=== PATIENT | male | born 1980 | race Two or more races ===

== ENCOUNTER → 2016-10-07 | Outpatient (CLI) | payer BC ==
[~2016-10-07] MED LIST: HYDR-906 PO; IBUP800T25 PO
== END | disposition home or self-care (01) ==
LOC: HKI 08:51
PROVIDERS: ATTEND Orthopaedic Surgery
DX: S83.222D Peripheral tear of medial meniscus, current injury, left knee, subsequent encounter (principal); S83.512D Sprain of anterior cruciate ligament of left knee, subsequent encounter; M17.12 Unilateral primary osteoarthritis, left knee; M25.562 Pain in left knee
CPT/HCPCS: G0463

== ENCOUNTER → 2016-11-02 | Outpatient (CLI) | payer BC | END | disposition home or self-care (01) | LOC: HKI 09:26 | PROVIDERS: ATTEND Orthopaedic Surgery | DX: S83.222D Peripheral tear of medial meniscus, current injury, left knee, subsequent encounter (principal); S83.512D Sprain of anterior cruciate ligament of left knee, subsequent encounter; M17.12 Unilateral primary osteoarthritis, left knee; M25.562 Pain in left knee | CPT/HCPCS: G0463 ==

== ENCOUNTER → 2016-11-08 | Outpatient (CLI) | payer BC ==
[2016-11-08 16:31] LABS: BASOPHILS % 0.6 % (0.0-2.0); EOSINOPHILS # 0.1 10^3/ul (0.0-0.5); EOSINOPHILS % 1.7 % (0.0-7.0); HEMATOCRIT 47.6 % (42.0-52.0); HEMOGLOBIN 16.3 g/dl (14.0-18.0); LYMPHOCYTES # 2.2 10^3/ul (0.8-2.9); MEAN CORPUSCULAR HEMOGLOBIN 31.1 pg (29.0-33.0); MEAN CORPUSCULAR HGB CONC 34.1 g/dl (32.0-37.0); MEAN CORPUSCULAR VOLUME 91.2 fl (82.0-101.0); MONOCYTE # 0.8 10^3/ul (0.3-0.9); MONOCYTES % 10.4 % (0.0-11.0); NEUTROPHIL # 4.5 10^3/ul (1.6-7.5); NEUTROPHILS % 58.3 % (39.0-77.0); PLATELET COUNT 193 10^3/UL (140-440); RED BLOOD COUNT 5.23 10^6/ul (4.70-6.10); RED CELL DISTRIBUTION WIDTH 14.3 % (11.5-14.5); UNCORRECTED WBC 7.7 10^3/ul (4.8-10.8); WHITE BLOOD COUNT 7.7 10^3/ul (4.8-10.8)
[2016-11-08 16:37] LABS: CONDITION 1
[2016-11-08 16:43] LABS: ALBUMIN 4.2 g/dl (3.3-4.9); POTASSIUM 4.3 mmol/L (3.5-5.1)
[2016-11-08 16:44] LABS: INR 0.93; PROTIME 12.5 Sec (12.2-14.2)
[2016-11-08 16:45] LABS: CREATININE 0.79 mg/dl (0.61-1.24); PARTIAL THROMBOPLASTIN TIME 29.6 Sec (25.0-35.0)
[2016-11-08 16:46] LABS: ALBUMIN/GLOBULIN RATIO 1.2; TOTAL PROTEIN 7.7 g/dl (6.1-8.1)
[2016-11-08 16:47] LABS: CALCIUM 9.3 mg/dl (8.4-10.2)
--- NOTE | 2016-11-09 14:50 | RADRPT ---
Vent Rate: 89 bpm RR Interval: 0 msec W[place] Interval: 162 msec QRS Duration: 76 msec QT Interval: 344 msec QTC Interval: 418 msec P-R-T [place]: 67 - 66 - 58 degrees Normal sinus rhythm Normal ECG Electronically Signed By: Emery Ruff [id number]
--- NOTE | 2016-11-09 14:52 | RADRPT ---
PROCEDURE: XR Chest. CLINICAL INDICATION: Preoperative for knee surgery. TECHNIQUE: Two views. Frontal and lateral. COMPARISON: 01/28/2015. FINDINGS: The lungs are clear. The heart size is normal. There is no pleural effusion. There is no pneumothorax. IMPRESSION: 1. Normal chest radiograph. 2. No change from 01/28/2015. RPTAT: QQ .Eder Patricio MD, MD Date Time Electronically viewed and signed by .Eder Patricio MD, MD on 11/09/2016 14:52 .R/
== END | disposition home or self-care (01) ==
LOC: RAD 15:43
PROVIDERS: ATTEND Internal Medicine
DX: S83.207D Unspecified tear of unspecified meniscus, current injury, left knee, subsequent encounter (principal); X58.XXXD Exposure to other specified factors, subsequent encounter; I10 Essential (primary) hypertension; R07.89 Other chest pain
CPT/HCPCS: 71020; 80053; 85025; 85610; 85651; 85730; 93005

== ENCOUNTER → 2016-11-16 | Outpatient (CLI) | payer BC | END | disposition home or self-care (01) | LOC: HKI 10:53 | PROVIDERS: ATTEND Orthopaedic Surgery | DX: Z01.818 Encounter for other preprocedural examination (principal); S83.232D Complex tear of medial meniscus, current injury, left knee, subsequent encounter; M25.562 Pain in left knee | CPT/HCPCS: G0463 ==

== ENCOUNTER → 2018-03-14 | Outpatient (CLI) | END | disposition home or self-care (01) ==

== ENCOUNTER → 2018-06-18 | Outpatient (CLI) | END | disposition home or self-care (01) ==